=== PATIENT | male | born 1970 | race Caucasian/White ===

== ENCOUNTER → 2017-09-07 | Outpatient (CLI) | payer MEDICARE, BC, MEDICAID ==
[2017-09-07] MEDS: IOHEXOL 300 MG/ML 100ML VIAL. IV (15:38)
[2017-09-07] MEDS: IOHEXOL 240 MG/ML 50ML VIAL. PO (15:45)
== END | disposition home or self-care (01) ==
LOC: CT 13:50
DX: K44.9 Diaphragmatic hernia without obstruction or gangrene (principal); R22.2 Localized swelling, mass and lump, trunk
CPT/HCPCS: 74177; Q9966; Q9967

== ENCOUNTER 2019-12-22 22:22 | Inpatient (IN) | payer MEDICARE ==
[~2019-12-22] VITALS: Ht 175.3 cm; Wt 89.6 kg
[2019-12-22] MEDS ORDERED: CALCIUM GLUCONATE 1,000 MG/10 ML VIAL. ONE (22:26)
[2019-12-22] MEDS ORDERED: SODIUM BICARB ADULT 8.4% 50 MEQ/50 ML DISP.SYRIN. ONE (22:31)
[2019-12-22] MEDS ORDERED: ATROPINE 1 MG/10 ML DISP.SYRINGE. ONE (22:31)
[2019-12-22] MEDS ORDERED: DEXTROSE 50% 25 GM / 50ML DISP.SYRIN. IV ONE ×2 (22:35→23:15)
[2019-12-22 23:01] LABS: ISTAT BE VENOUS -2 mmol/L (0-3); ISTAT HCO3 VEN 24 mmol/L (24-28); ISTAT PCO2 VEN 43 mmHg (41-51); ISTAT PH VEN 7.35 (7.32-7.42); ISTAT PO2 VEN 40 mmHg (20-40); ISTAT SAT O2 VEN 72 %; ISTAT TCO2 VEN 25 mmol/L (21-32)
[2019-12-22 23:04] LABS: BASO % 1 % (0-3); EOS # 0.1 x10^3/uL (0.0-0.7); EOS % 2 % (0-3); HEMATOCRIT 29.4 % (39.0-53.0); HEMOGLOBIN 9.2 g/dL (13.0-17.5); LYMPH # 1.3 x10^3/uL (1.0-4.8); LYMPH % 31 % (24-48); MEAN CORPUSCULAR HEMOGLOBIN 27 pg (25-35); MEAN CORPUSCULAR HGB CONC 31 g/dL (31-37); MEAN CORPUSCULAR VOLUME 87 fL (79-100); MONO # 0.6 x10^3/uL (0.0-1.1); MONO % 15 % (0-9); NEUT # 2.1 x10^3/uL (1.8-7.7); NEUT % 52 % (31-73); PLATELET COUNT 277 x10^3/uL (140-400); RED CELL DISTRIBUTION WIDTH 15.4 % (11.5-14.5); WHITE BLOOD COUNT 4.2 x10^3/uL (4.0-11.0)
[2019-12-22 23:15] LABS: ALBUMIN 1.9 g/dL (3.4-5.0); ALBUMIN/GLOBULIN RATIO 0.5 (1.0-1.7); CALCIUM 8.1 mg/dL (8.5-10.1); CREATININE 8.3 mg/dL (0.7-1.3); GFR 6.9; TOTAL BILIRUBIN 0.3 mg/dL (0.2-1.0); TOTAL PROTEIN 5.4 g/dL (6.4-8.2)
[2019-12-22] MEDS ORDERED: CALCIUM GLUCONATE 1,000 MG/10 ML VIAL. IVP ONE (23:15)
[2019-12-22] MEDS ORDERED: IV NORMAL SALINE 1000ML BAG 1,000 ML IV ONE (23:15)
[2019-12-22] MEDS ORDERED: SODIUM BICARB ADULT 8.4% 50 MEQ/50 ML DISP.SYRIN. IV ONE (23:15)
[2019-12-22] MEDS ORDERED: INSULIN REGULAR 100 UNIT/ML 3ML VIAL. IV ONE (23:15)
[2019-12-23] VITALS (14 sets, daily range): BP systolic 121–151; BP diastolic 74–90
--- NOTE | 2019-12-23 00:14 | PHYS DOC ---
Past Medical History Past Medical History: Other Additional Past Medical Histor: kidney transplant, ascited, esrd Past Surgical History: Cholecystectomy, Other Additional Past Surgical Histo: kidney transplant, peritoneal fistula removed, left chest dialysis cath Smoking Status: Never Smoker Alcohol Use: None General Adult EDM: Chief Complaint: BRADYCARDIA HPI: HPI: The history was obtained from the patient. Patient is a 49-year-old male with PMH ESRD, coronary artery disease who presents with a chief complaint of generalized weakness. Per EMS the patient was bradycardic on arrival with heart rate of approximately 30. 0.5 mg of atropine was administered without success. Patient denies any chest pain or shortness of breath. He states he receives dialysis on Mondays, Wednesdays, and Fridays. He did not receive treatment today because he was not feeling well. 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 He is unsure of the name of the medications he takes but does not think that he takes digoxin or beta-blockers or calcium channel blockers. He denies abdominal pain or vomiting. States he is felt generally ill and weak throughout the day. Denies any syncope. No other complaints. Review of Systems: Review of Systems: Constitutional: Generalized weakness Eyes: Denies change in visual acuity. [] HENT: Denies nasal congestion or sore throat. [] Respiratory: Denies cough or shortness of breath. [] Cardiovascular: Denies chest pain or edema. [] GI: Denies abdominal pain, nausea, vomiting, bloody stools or diarrhea. [] : Denies dysuria. [] Musculoskeletal: Denies back pain or joint pain. [] Integument: Denies rash. [] Neurologic: Denies headache, focal weakness or sensory changes. [] Endocrine: Denies polyuria or polydipsia. [] Lymphatic: Denies swollen glands. [] Psychiatric: Denies depression or anxiety. [] Heart Score: Risk Factors: Risk Factors: DM, Current or recent (<one month) smoker, HTN, HLP, family history of CAD, obesity. Risk Scores: Score 0 - 3: 2.5% MACE over next 6 weeks - Discharge Home Score 4 - 6: 20.3% MACE over next 6 weeks - Admit for Clinical Observation Score 7 - 10: 72.7% MACE over next 6 weeks - Early Invasive Strategies Current Medications: Current Medications Medications (Trade) Dose Ordered Sig/Celia Start Time Stop Time Status Last Admin Dose Admin Atropine Sulfate (ATROPINE 1mg SYRINGE) 1 mg STK-MED ONCE 12/22/19 22:31 12/22/19 22:32 DC Calcium Gluconate (Calcium Gluconate) 3,000 mg 1X ONCE 12/22/19 23:15 12/22/19 23:16 DC 12/22/19 22:30 3,000 MG Dextrose (Dextrose 50%-Water Syringe) 25 gm 1X ONCE 12/22/19 23:15 12/22/19 23:16 DC 12/22/19 22:40 25 GM Insulin Human Regular (HumuLIN R VIAL) 10 unit 1X ONCE 12/22/19 23:15 12/22/19 23:16 DC 12/22/19 22:30 10 UNIT Sodium Bicarbonate (Sodium Bicarb Adult 8.4% Syr) 50 meq 1X ONCE 12/22/19 23:15 12/22/19 23:16 DC 12/22/19 22:36 50 MEQ Sodium Chloride 1,000 ml @ 0 mls/hr 1X ONCE 12/22/19 23:15 12/22/19 23:16 DC 12/22/19 22:38 500 MLS/HR Allergies: Allergies: Allergies Coded Allergies Type Severity Reaction Last Updated Verified metoclopramide Allergy Intermediate Unknown 09/07/17 Yes Physical Exam: PE: Constitutional: Well developed, well nourished, no acute distress, non-toxic appearance. [] HENT: Normocephalic, atraumatic, bilateral external ears normal, oropharynx moist, no oral exudates, nose normal. [] Eyes: PERRLA, EOMI, conjunctiva normal, no discharge. [] Neck: Normal range of motion, no tenderness, supple, no stridor. [] Cardiovascular: Bradycardic. Lungs & Thorax: Bilateral breath sounds clear to auscultation [] Abdomen: Bowel sounds normal, soft, no tenderness, no masses, no pulsatile masses. [] Skin: Warm, dry, no erythema, no rash. [] Back: No tenderness, no CVA tenderness. [] Extremities: Alert with intact cognitive function. No aphasia, dysarthria, or neglect. GCS 15. Pupils 3 mm briskly reactive b/l. No APD present. Cranial nerves 2-12 grossly intact; no facial asymmetry present, tongue midline, shoulder shrugging strength intact. Strength 5/5 and symmetric throughout. Light touch sensation intact throughout. Cerebellar testing appropriate without evidence of dysdiadochokinesia. DTR's 2+ in all 4 extremities. Negative pronator drift bilaterally. Gait deferred Neurologic: Alert and oriented X 3, normal motor function, normal sensory function, no focal deficits noted. [] Psychologic: Affect normal, judgement normal, mood normal. [] Current Patient Data: Labs: Laboratory Tests Test 12/22/19 22:31 12/22/19 22:34 12/22/19 22:57 White Blood Count 4.2 x10^3/uL (4.0-11.0) Red Blood Count 3.40 x10^6/uL (4.30-5.70) L Hemoglobin 9.2 g/dL (13.0-17.5) L Hematocrit 29.4 % (39.0-53.0) L Mean Corpuscular Volume 87 fL (79-100) Mean Corpuscular Hemoglobin 27 pg (25-35) Mean Corpuscular Hemoglobin Concent 31 g/dL (31-37) Red Cell Distribution Width 15.4 % (11.5-14.5) H Platelet Count 277 x10^3/uL (140-400) Neutrophils (%) (Auto) 52 % (31-73) Lymphocytes (%) (Auto) 31 % (24-48) Monocytes (%) (Auto) 15 % (0-9) H Eosinophils (%) (Auto) 2 % (0-3) Basophils (%) (Auto) 1 % (0-3) Neutrophils # (Auto) 2.1 x10^3/uL (1.8-7.7) Lymphocytes # (Auto) 1.3 x10^3/uL (1.0-4.8) Monocytes # (Auto) 0.6 x10^3/uL (0.0-1.1) Eosinophils # (Auto) 0.1 x10^3/uL (0.0-0.7) Basophils # (Auto) 0.0 x10^3/uL (0.0-0.2) Sodium Level 138 mmol/L (136-145) Potassium Level 6.0 mmol/L (3.5-5.1) H Chloride Level 104 mmol/L (98-107) Carbon Dioxide Level 25 mmol/L (21-32) Anion Gap 9 (6-14) Blood Urea Nitrogen 52 mg/dL (8-26) H Creatinine 8.3 mg/dL (0.7-1.3) H Estimated GFR (Cockcroft-Gault) 6.9 BUN/Creatinine Ratio 6 (6-20) Glucose Level 107 mg/dL (70-99) H Lactic Acid Level 1.2 mmol/L (0.4-2.0) Calcium Level 8.1 mg/dL (8.5-10.1) L Total Bilirubin 0.3 mg/dL (0.2-1.0) Aspartate Amino Transferase (AST) 18 U/L (15-37) Alanine Aminotransferase (ALT) 11 U/L (16-63) L Alkaline Phosphatase 137 U/L (46-116) H Total Protein 5.4 g/dL (6.4-8.2) L Albumin 1.9 g/dL (3.4-5.0) L Albumin/Globulin Ratio 0.5 (1.0-1.7) L Glucose (Fingerstick) 103 mg/dL (70-99) H POC Venous pH 7.35 (7.32-7.42) POC Venous pCO2 43 mmHg (41-51) POC Venous pO2 40 mmHg (20-40) Venous Blood HCO3 24 mmol/L (24-28) POC Venous O2 Saturation (Nisreen) 72 % POC FiO2 21.0 Laboratory Tests 12/22/19 22:31 Laboratory Tests 12/22/19 22:31 Vital Signs: Vital Signs Date Time Temp Pulse Resp B/P (MAP) Pulse Ox O2 Delivery O2 Flow Rate FiO2 12/22/19 22:52 74 114/58 (76) 98 Room Air 12/22/19 22:22 98.8 18 98.8 EKG: EKG: [] EKG consistent with bradycardia. No discernible periods noted. Large T waves present. No previous for comparison. Radiology/Procedures: Radiology/Procedures: [] Course & Med Decision Making: Course & Med Decision Making Pertinent Labs and Imaging studies reviewed. (See chart for details) Patient is a 49-year male who presents with a complaint of generalized weakness. Initial vital signs notable for bradycardia of approximately 30. EKG was concerning for hyperkalemia given he has no discernible P waves and does have peaked T waves. 3 g of calcium gluconate was administered immediately. 50 mill equivalents of sodium bicarbonate as well as 50 meq D50 were administered in conjunction with 10 units regular insulin. His heart rate did respond well to this. His current heart rate is now 70 bpm. He showed no signs of current bradycardia. I do feel he will require dialysis given his creatinine is 8.3. I do feel his bradycardia is likely secondary to high potassium. Patient will be hospitalized to the intensive care unit for close heart rate monitoring. Dragon Disclaimer: Dragon Disclaimer: This electronic medical record was generated, in whole or in part, using a voice recognition dictation system. Departure Departure Impression: Primary Impression: Bradycardia Additional Impressions: Hyperkalemia ESRD (end stage renal disease) Disposition: ADMITTED INPATIENT Condition: STABLE Referrals: Michel DAVIDSON MD (PCP) Justicifation of Admission Dx: Justifications for Admission: Justification of Admission Dx: Yes Chronic Renal Failure: Electrolyte Abnormality Comments: bradycardia, hyperkalemia, ESRD WILLARD RUIZ DO Dec 23, 2019 00:14
[2019-12-23] MEDS ORDERED: ATOR80TA72 PO (02:27)
[2019-12-23] MEDS ORDERED: FAMO40TA4 PO (02:27)
[2019-12-23] MEDS ORDERED: TACR1CAP2 PO (02:27)
[2019-12-23] MEDS ORDERED: CALC0.5C8 PO (02:27)
[2019-12-23] MEDS ORDERED: GABA600T7 PO (02:27)
[2019-12-23] MEDS ORDERED: DIPH1TAB5 PO (02:27)
[2019-12-23] MEDS ORDERED: MYCO180T3 PO (02:27)
[2019-12-23] MEDS ORDERED: MAGN64TA6 PO (02:27)
[2019-12-23] MEDS ORDERED: CLOP75TA PO (02:27)
[2019-12-23] MEDS ORDERED: CARV6.253 PO (02:27)
[2019-12-23] MEDS ORDERED: CINA30TA6 PO (02:27)
[2019-12-23] MEDS ORDERED: PANT40TA6 PO (02:27)
--- NOTE | 2019-12-23 02:28 | NUR ---
Patient arrived to ICU room 107 via gurney accompanied by ED RN at 0158. Patient able to move over to ICU bed by himself. Patient attached to ICU monitors. Patient SR on monitor, BP stable, RA, heart murmur heard, patent IVx2 present, A&Ox4, and distended abdomen. Patient states his last date of dialysis was Sunday, but that he is generally very compliant with medications and dialysis so it was out of the ordinary for him to skip his Sunday dialysis. Oriented patient to call light, tv controls, bed controls, ICU routines, activity, and diet. Patient resting at this time, no complaints of pain and VSS. Will continue to monitor.
--- NOTE | 2019-12-23 03:55 | EKG ---
[facility] [address] [place] [address] Test Date: 2019-12-22 Test Time: 22:30:25 Pat Name: CORTES HUYNH Department: Room: Gender: M Vice President Compliance: : 1970 Requested By: WILLARD RUIZ Order Number: [id number] Reading MD: Measurements Intervals [place] Rate: 52 P: [place]: QRS: 23 QRSD: 82 T: 64 QT: 504 QTc: 471 Interpretive Statements IRREGULAR RHYTHM, NO P-WAVE FOUND LOW LIMB LEAD VOLTAGE T ABNORMALITY IN HIGH LATERAL LEADS PROLONGED QT ABNORMAL ECG RI6.02 No previous ECG available for comparison
[2019-12-23] MEDS ORDERED: DIPHENOXYLATE/ATROPINE TABLET. PO PRN (08:45)
[2019-12-23 08:53] LABS: CALCIUM 8.4 mg/dL (8.5-10.1); CREATININE 8.6 mg/dL (0.7-1.3); GFR 6.6; POTASSIUM 5.9 mmol/L (3.5-5.1)
--- NOTE | 2019-12-23 08:55 | PDOC1 ---
History and Physical Date of Admission Date of Admission 09/22/2019 Identification/Chief Complaint Chief Complaint lightheadness Source Source: Chart review, Patient History of Present Illness History of Present Illness Patient is a 49-year-old male with a past medical history of end-stage renal disease and who underwent a kidney transplant seems like it was due to u ncontrolled hypertension he also has a history of coronary artery disease. The patient did not receive his dialysis therapy yesterday as scheduled and he had some complaints of lightheadedness and generalized weakness. EMS was summoned and he was found to have heart rate of 30 requiring atropine administration patient does not recall having changes to his medications on external review of his meds he is on amiodarone which will be placed on hold at the present time. As part of his chronic medications he does have a beta-ricci which is quite low-dose and unlikely to cause a bradycardia of 30. At the time of my evaluation the patient is in no acute distress the patient denies any chest pain no palpitations no shortness of breath no lightheadedness no loss of consciousness no strokelike symptoms were noted. Patient has been admitted at the request of the ER for dialysis and monitoring of his heart rate The patient is hemodynamically stable, all concerns addressed to the best of my abilities Past Medical History Cardiovascular: CAD, CHF Renal/: Chronic renal insuff Past Surgical History Past Surgical History: No pertinent history (Kidney transplant, peritoneal fistula removed, left chest dialysis catheter) Family History Family History: No Significant Social History Smoke: No ALCOHOL: none Drugs: None Current Medications Current Medications Current Medications Medications (Trade) Dose Ordered Sig/Celia Start Time Stop Time Status Last Admin Dose Admin Atropine Sulfate (ATROPINE 1mg SYRINGE) 1 mg STK-MED ONCE 12/22/19 22:31 12/22/19 22:32 DC Calcium Gluconate (Calcium Gluconate) 3,000 mg 1X ONCE 12/22/19 23:15 12/22/19 23:16 DC 12/22/19 22:30 3,000 MG Carvedilol (Coreg) 6.25 mg BID 12/23/19 09:00 UNV Cinacalcet (Sensipar) 30 mg DAILY 12/23/19 09:00 UNV Clopidogrel Bisulfate (Plavix) 75 mg DAILY 12/23/19 09:00 UNV Dextrose (Dextrose 50%-Water Syringe) 25 gm 1X ONCE 12/22/19 23:15 12/22/19 23:16 DC 12/22/19 22:40 25 GM Diphenoxylate HCl/ Atropine (Lomotil) 4 tab QID PRN 12/23/19 08:45 UNV Insulin Human Regular (HumuLIN R VIAL) 10 unit 1X ONCE 12/22/19 23:15 12/22/19 23:16 DC 12/22/19 22:30 10 UNIT Non-Formulary Medication (Atorvastatin Calcium ) 1 tab DAILY 12/23/19 09:00 UNV Non-Formulary Medication (Calcitriol ) 1 cap DAILY 12/23/19 09:00 UNV Non-Formulary Medication (Famotidine ) 1 tab BID 12/23/19 09:00 UNV Non-Formulary Medication (Gabapentin ) 1 tab BID 12/23/19 09:00 UNV Non-Formulary Medication (Magnesium Chloride (Mag64)) 1 tab DAILY 12/23/19 09:00 UNV Pantoprazole Sodium (Protonix) 40 mg DAILY 12/23/19 09:00 UNV Sodium Bicarbonate (Sodium Bicarb Adult 8.4% Syr) 50 meq 1X ONCE 12/22/19 23:15 12/22/19 23:16 DC 12/22/19 22:36 50 MEQ Sodium Chloride 1,000 ml @ 0 mls/hr 1X ONCE 12/22/19 23:15 12/22/19 23:16 DC 12/22/19 22:38 500 MLS/HR Allergies Allergies Allergies Coded Allergies Type Severity Reaction Last Updated Verified metoclopramide Allergy Intermediate Unknown 09/07/17 Yes ROS Review of System CONSTITUTIONAL: No fever or chills EYES: No recent changes SKIN: No rash or itching CARDIOVASCULAR: No chest pain, syncope, palpitations, or edema RESPIRATORY: No SOB or cough GASTROINTESTINAL: No nausea, vomiting or abdominal pain NEUROLOGICAL: No headaches or weakness ENDOCRINE: No cold or heat intolerance GENITOURINARY: No urgency or frequency of urination MUSCULOSKELETAL: No back pain or joint pain LYMPHATICS: No enlarged lymph nodes PSYCHIATRIC: No anxiety or depression Physical Exam Physical Exam GEN.: No apparent distress. Alert and oriented. HEENT: Head is normocephalic, atraumatic NECK: Supple. LUNGS: Clear to auscultation. HEART: RRR, S1, S2 present. Peripheral pulses intact ABDOMEN: Soft, nontender. Positive bowel sounds. EXTREMITIES: Without any cyanosis. NEUROLOGIC: Normal speech, normal tone PSYCHIATRIC: Normal affect, normal mood. SKIN: No ulcerations Vitals Vitals Vital Signs Date Time Temp Pulse Resp B/P (MAP) Pulse Ox O2 Delivery O2 Flow Rate FiO2 12/23/19 08:00 Room Air 12/23/19 08:00 98.4 64 11 140/82 (101) 98 98.4 Labs Labs Laboratory Tests Test 12/22/19 22:31 12/22/19 22:34 12/22/19 22:57 White Blood Count 4.2 x10^3/uL (4.0-11.0) Red Blood Count 3.40 x10^6/uL (4.30-5.70) Hemoglobin 9.2 g/dL (13.0-17.5) Hematocrit 29.4 % (39.0-53.0) Mean Corpuscular Volume 87 fL (79-100) Mean Corpuscular Hemoglobin 27 pg (25-35) Mean Corpuscular Hemoglobin Concent 31 g/dL (31-37) Red Cell Distribution Width 15.4 % (11.5-14.5) Platelet Count 277 x10^3/uL (140-400) Neutrophils (%) (Auto) 52 % (31-73) Lymphocytes (%) (Auto) 31 % (24-48) Monocytes (%) (Auto) 15 % (0-9) Eosinophils (%) (Auto) 2 % (0-3) Basophils (%) (Auto) 1 % (0-3) Neutrophils # (Auto) 2.1 x10^3/uL (1.8-7.7) Lymphocytes # (Auto) 1.3 x10^3/uL (1.0-4.8) Monocytes # (Auto) 0.6 x10^3/uL (0.0-1.1) Eosinophils # (Auto) 0.1 x10^3/uL (0.0-0.7) Basophils # (Auto) 0.0 x10^3/uL (0.0-0.2) Sodium Level 138 mmol/L (136-145) Potassium Level 6.0 mmol/L (3.5-5.1) Chloride Level 104 mmol/L (98-107) Carbon Dioxide Level 25 mmol/L (21-32) Anion Gap 9 (6-14) Blood Urea Nitrogen 52 mg/dL (8-26) Creatinine 8.3 mg/dL (0.7-1.3) Estimated GFR (Cockcroft-Gault) 6.9 BUN/Creatinine Ratio 6 (6-20) Glucose Level 107 mg/dL (70-99) Lactic Acid Level 1.2 mmol/L (0.4-2.0) Calcium Level 8.1 mg/dL (8.5-10.1) Total Bilirubin 0.3 mg/dL (0.2-1.0) Aspartate Amino Transf (AST/SGOT) 18 U/L (15-37) Alanine Aminotransferase (ALT/SGPT) 11 U/L (16-63) Alkaline Phosphatase 137 U/L (46-116) Total Protein 5.4 g/dL (6.4-8.2) Albumin 1.9 g/dL (3.4-5.0) Albumin/Globulin Ratio 0.5 (1.0-1.7) Glucose (Fingerstick) 103 mg/dL (70-99) Bedside Venous pH 7.35 (7.32-7.42) Bedside Venous pCO2 43 mmHg (41-51) Bedside Venous pO2 40 mmHg (20-40) Venous Blood HCO3 24 mmol/L (24-28) POC Venous O2 Saturation (Nisreen) 72 % Bedside FiO2 21.0 Laboratory Tests Test 12/22/19 22:31 12/22/19 22:34 12/22/19 22:57 White Blood Count 4.2 x10^3/uL (4.0-11.0) Red Blood Count 3.40 x10^6/uL (4.30-5.70) Hemoglobin 9.2 g/dL (13.0-17.5) Hematocrit 29.4 % (39.0-53.0) Mean Corpuscular Volume 87 fL (79-100) Mean Corpuscular Hemoglobin 27 pg (25-35) Mean Corpuscular Hemoglobin Concent 31 g/dL (31-37) Red Cell Distribution Width 15.4 % (11.5-14.5) Platelet Count 277 x10^3/uL (140-400) Neutrophils (%) (Auto) 52 % (31-73) Lymphocytes (%) (Auto) 31 % (24-48) Monocytes (%) (Auto) 15 % (0-9) Eosinophils (%) (Auto) 2 % (0-3) Basophils (%) (Auto) 1 % (0-3) Neutrophils # (Auto) 2.1 x10^3/uL (1.8-7.7) Lymphocytes # (Auto) 1.3 x10^3/uL (1.0-4.8) Monocytes # (Auto) 0.6 x10^3/uL (0.0-1.1) Eosinophils # (Auto) 0.1 x10^3/uL (0.0-0.7) Basophils # (Auto) 0.0 x10^3/uL (0.0-0.2) Sodium Level 138 mmol/L (136-145) Potassium Level 6.0 mmol/L (3.5-5.1) Chloride Level 104 mmol/L (98-107) Carbon Dioxide Level 25 mmol/L (21-32) Anion Gap 9 (6-14) Blood Urea Nitrogen 52 mg/dL (8-26) Creatinine 8.3 mg/dL (0.7-1.3) Estimated GFR (Cockcroft-Gault) 6.9 BUN/Creatinine Ratio 6 (6-20) Glucose Level 107 mg/dL (70-99) Lactic Acid Level 1.2 mmol/L (0.4-2.0) Calcium Level 8.1 mg/dL (8.5-10.1) Total Bilirubin 0.3 mg/dL (0.2-1.0) Aspartate Amino Transf (AST/SGOT) 18 U/L (15-37) Alanine Aminotransferase (ALT/SGPT) 11 U/L (16-63) Alkaline Phosphatase 137 U/L (46-116) Total Protein 5.4 g/dL (6.4-8.2) Albumin 1.9 g/dL (3.4-5.0) Albumin/Globulin Ratio 0.5 (1.0-1.7) Glucose (Fingerstick) 103 mg/dL (70-99) Bedside Venous pH 7.35 (7.32-7.42) Bedside Venous pCO2 43 mmHg (41-51) Bedside Venous pO2 40 mmHg (20-40) Venous Blood HCO3 24 mmol/L (24-28) POC Venous O2 Saturation (Nisreen) 72 % Bedside FiO2 21.0 VTE Prophylaxis Ordered VTE Prophylaxis Devices: No VTE Pharmacological Prophylaxi: Yes Assessment/Plan Assessment/Plan Sinus bradycardia most likely secondary to amiodarone End-stage renal disease on hemodialysis with a schedule of Sunday Hyperkalemia secondary to the above with no EKG nor telemetry changes of concern CAD currently asymptomatic Essential hypertension Plan Admit patient to the telemetry floor Resume home medications Hold amiodarone Dialysis as per lactation consultant Further recommendations based on the clinical course DVT prophylaxis with heparin AUDIE BACA MD Dec 23, 2019 08:55
[2019-12-23] MEDS ORDERED: NON FORMULARY ITEM (Famotidine 1 TAB) PO SCH (09:00)
[2019-12-23] MEDS: CLOPIDOGREL BISULFATE 75 MG TABLET PO SCH (09:28)
[2019-12-23] MEDS: CINACALCET HCL 30 MG TABLET PO SCH (09:28)
[2019-12-23] MEDS: CARVEDILOL 6.25 MG TABLET. PO SCH ×2 (09:29→18:32)
[2019-12-23] MEDS: MAGNESIUM CHLORIDE ER 64 MG TABLET.ER PO SCH (09:29)
[2019-12-23] MEDS: PANTOPRAZOLE 40 MG TABLET.DR. PO SCH (09:29)
[2019-12-23] MEDS: GABAPENTIN 300 MG CAPSULE. PO SCH ×2 (09:32→21:08)
[2019-12-23] MEDS: CALCITRIOL 0.25 MCG CAPSULE. PO SCH (10:41)
[2019-12-23] MEDS ORDERED: DIALYSIS PATIENT. MC PRN ×2 (12:30)
[2019-12-23] MEDS ORDERED: ALBUMIN HUMAN 25% 200 ML IV PRN (12:30)
[2019-12-23] MEDS ORDERED: IV NORMAL SALINE 1000ML BAG 1,000 ML IV PRN ×2 (12:30)
[2019-12-23] MEDS ORDERED: TACROLIMUS 1 MG CAPSULE PO SCH (13:00)
[2019-12-23] MEDS: MYCOPHENOLATE ACID 180 MG TABLET.DR. PO SCH ×2 (13:01→21:12)
--- NOTE | 2019-12-23 13:06 | PDOC2 ---
CONSULT Date of Consult Date of Consult DATE: 12/23/19 TIME: 12:53 Reason for Consult Reason for Consult: HIGH K, HX OF RENAL TX AND NOW ESRD Referring Physician Referring Physician: PHUONG Identification/Chief Complaint Chief Complaint WEAKNESS AND LIGHTHEADED Source Source: Chart review, Patient History of Present Illness Reason for Visit: THIS IS A 49 YR OLD WITH A PMH FOR DM. DEVELOPED ESRD AROUND 1999 AND WAS ON HD VIA A LEFT AM AV ACCESS. ABOUT 2002 HE RECEIVED A TRANSPLANT. ABOUT 6 YEARS AGO HIS RENAL TX FAILED AND HE HAD TO RESUME DIALYSIS. HE WAS ON PD UNTIL ABOUT A FEW MONTHS AGO WHEN HE WAS TRANSITIONED TO HD. HIS PANCREAS STILL WORKS AND HE IS THUS STILL ON IMMUNOSUPPRESSIVE MEDICATIONS. ON ADMIT HIS K IS 6.0 AND HE IS BRADYCARDIC WITH HR OF 30 BUT HEMODYNAMICALLY STABLE WITH LOWEST BP OF 91/48. MED LIST INCLUDED A BETABLOCKER AND AMIODARONE. BOTH PLACED ON HOLD AT THIS TIME. HIS ESRD CARE IS DELIVERED BY [facility]. HE HAS OP HD ON MWF AND STATES HE HAS BEEN COMPLIANT BUT DID NOT GO YESTERDAY TO HIS TX DUE TO NOT FEELING WELL. HYPERKALEMIA TX IN THE ER WITH CA, DEXTROSE, INSULIN AND HCO3. Past Medical History Past Medical History HX OF DM, CHRONIC IMMUNOSUPPRESSION. Cardiovascular: CAD, CHF GI: Constipation Renal/: Chronic renal insuff Past Surgical History Past Surgical History KX OF KP TX, LEFT ARM AV ACCESS PLACEMENT, PD CATHETER PLACEMENT AND REMOVAL. RETINAL PHOTOCOAGULATION TX Past Surgical History: No pertinent history (Kidney transplant, left chest dialysis catheter) Family History Family History: No Significant Social History No ALCOHOL: none Drugs: None Current Medications Current Medications Current Medications Calcium Gluconate (Calcium Gluconate) 1,000 mg STK-MED ONCE .ROUTE ; Start 12/22/19 at 22:26; Stop 12/22/19 at 22:27; Status DC Sodium Bicarbonate (Sodium Bicarb Adult 8.4% Syr) 50 meq STK-MED ONCE .ROUTE ; Start 12/22/19 at 22:31; Stop 12/22/19 at 22:32; Status DC Atropine Sulfate (ATROPINE 1mg SYRINGE) 1 mg STK-MED ONCE .ROUTE ; Start 12/22/19 at 22:31; Stop 12/22/19 at 22:32; Status DC Dextrose (Dextrose 50%-Water Syringe) 25 gm STK-MED ONCE IV ; Start 12/22/19 at 22:35; Stop 12/22/19 at 22:35; Status DC Sodium Bicarbonate (Sodium Bicarb Adult 8.4% Syr) 50 meq 1X ONCE IV Last administered on 12/22/19at 22:36; Start 12/22/19 at 23:15; Stop 12/22/19 at 23:16; Status DC Calcium Gluconate (Calcium Gluconate) 3,000 mg 1X ONCE IVP Last administered on 12/22/19at 22:30; Start 12/22/19 at 23:15; Stop 12/22/19 at 23:16; Status DC Insulin Human Regular (HumuLIN R VIAL) 10 unit 1X ONCE IV Last administered on 12/22/19at 22:30; Start 12/22/19 at 23:15; Stop 12/22/19 at 23:16; Status DC Dextrose (Dextrose 50%-Water Syringe) 25 gm 1X ONCE IV Last administered on 12/22/19at 22:40; Start 12/22/19 at 23:15; Stop 12/22/19 at 23:16; Status DC Sodium Chloride 1,000 ml @ 0 mls/hr 1X ONCE IV Last administered on 12/22/19at 22:38; Start 12/22/19 at 23:15; Stop 12/22/19 at 23:16; Status DC Carvedilol (Coreg) 6.25 mg BIDWMEALS PO Last administered on 12/23/19at 09:29; Start 12/23/19 at 10:00 Cinacalcet (Sensipar) 30 mg DAILY PO Last administered on 12/23/19at 09:28; Start 12/23/19 at 10:00 Clopidogrel Bisulfate (Plavix) 75 mg DAILY PO Last administered on 12/23/19at 09:28; Start 12/23/19 at 10:00 Diphenoxylate HCl/ Atropine (Lomotil) 4 tab PRN QID PRN PO DIARRHEA; Start 12/23/19 at 08:45 Pantoprazole Sodium (Protonix) 40 mg DAILYAC PO Last administered on 12/23/19at 09:29; Start 12/23/19 at 10:00 Atorvastatin Calcium (Lipitor) 80 mg QHS PO ; Start 12/23/19 at 21:00 Calcitriol (Rocaltrol) 0.5 mcg DAILY PO Last administered on 12/23/19at 10:41; Start 12/23/19 at 10:00 Non-Formulary Medication (Famotidine ) 1 tab BID PO ; Start 12/23/19 at 09:00; Stop 12/23/19 at 09:25; Status DC Gabapentin (Neurontin) 600 mg BID PO Last administered on 12/23/19at 09:32; Start 12/23/19 at 10:00 Magnesium Chloride (Mag Delay) 64 mg DAILY PO Last administered on 12/23/19at 09:29; Start 12/23/19 at 10:00 Mycophenolate Sodium (Myfortic) 180 mg BID PO ; Start 12/23/19 at 13:00 Tacrolimus (Prograf) 1 mg BID PO ; Start 12/23/19 at 13:00; Stop 12/23/19 at 12:45; Status DC Tacrolimus (Prograf) 1 mg BID PO ; Start 12/23/19 at 21:00 Active Scripts Active Reported Diphenoxylate-Atropine Tablet (Diphenoxylate Hcl/Atropine) 1 Each Tablet 4 Tab PO QID PRN Mycophenolic Acid (Mycophenolate Sodium) 180 Mg Tablet.dr 1 Tab PO BID Atorvastatin Calcium 80 Mg Tablet 1 Tab PO DAILY Clopidogrel (Clopidogrel Bisulfate) 75 Mg Tablet 1 Tab PO DAILY Carvedilol 6.25 Mg Tablet 1 Tab PO BID Pantoprazole Sodium 40 Mg Tablet.dr 1 Tab PO DAILY Tacrolimus 1 Mg Capsule 1 Cap PO BID Calcitriol 0.5 Mcg Capsule 1 Cap PO DAILY Mag64 (Magnesium Chloride) 64 Mg Tablet.er 1 Tab PO DAILY Gabapentin 600 Mg Tablet 1 Tab PO BID Cinacalcet HCl 30 Mg Tablet 1 Tab PO DAILY Famotidine 40 Mg Tablet 1 Tab PO BID Allergies Allergies: Coded Allergies: metoclopramide (Verified Allergy, Intermediate, Unknown, 09/07/17) ROS General: YES: Fatigue, Malaise, Appetite PSYCHOLOGICAL ROS: YES: Anxiety, Depression Eyes: Yes Decreased vision ALLERGY AND IMMUNOLOGY: YES: Seasonal Allergies Cardiovascular: yes Lt Headedness Gastrointestinal: Yes Nausea, Yes Constipation Genitourinary: YES Other (OLIGURIA) Musculoskeletal: Yes Muscular Weakness Neurological: Yes Dizziness, Yes Weakness Skin: Yes Dry Skin Physical Exam Physical Exam LEFT IJ TDC, FAILED LEFT FA AV ACCESS. General: Alert, Oriented X3, Cooperative, No acute distress HEENT: Atraumatic, PERRLA Lungs: Clear to auscultation Heart: Regular rate, Normal S1, Normal S2 Abdomen: Normal bowel sounds, Soft, No tenderness, Other (NT OVER TX SITE) Extremities: No clubbing, No cyanosis, No edema Skin: No breakdown Neuro: Normal speech, Sensation intact, Cranial nerves 3-12 NL Psych/Mental Status: Mental status NL, Mood NL MUSCULOSKELETAL: No joint tenderness, No deformity, No swelling Vitals VITALS Vital Signs Date Time Temp Pulse Resp B/P (MAP) Pulse Ox O2 Delivery O2 Flow Rate FiO2 12/23/19 11:00 97.7 62 15 121/74 (90) 95 Room Air 97.7 Labs Labs Laboratory Tests Test 12/22/19 22:31 12/22/19 22:34 12/22/19 22:57 12/23/19 08:34 White Blood Count 4.2 x10^3/uL (4.0-11.0) Red Blood Count 3.40 x10^6/uL (4.30-5.70) Hemoglobin 9.2 g/dL (13.0-17.5) Hematocrit 29.4 % (39.0-53.0) Mean Corpuscular Volume 87 fL (79-100) Mean Corpuscular Hemoglobin 27 pg (25-35) Mean Corpuscular Hemoglobin Concent 31 g/dL (31-37) Red Cell Distribution Width 15.4 % (11.5-14.5) Platelet Count 277 x10^3/uL (140-400) Neutrophils (%) (Auto) 52 % (31-73) Lymphocytes (%) (Auto) 31 % (24-48) Monocytes (%) (Auto) 15 % (0-9) Eosinophils (%) (Auto) 2 % (0-3) Basophils (%) (Auto) 1 % (0-3) Neutrophils # (Auto) 2.1 x10^3/uL (1.8-7.7) Lymphocytes # (Auto) 1.3 x10^3/uL (1.0-4.8) Monocytes # (Auto) 0.6 x10^3/uL (0.0-1.1) Eosinophils # (Auto) 0.1 x10^3/uL (0.0-0.7) Basophils # (Auto) 0.0 x10^3/uL (0.0-0.2) Sodium Level 138 mmol/L (136-145) 138 mmol/L (136-145) Potassium Level 6.0 mmol/L (3.5-5.1) 5.9 mmol/L (3.5-5.1) Chloride Level 104 mmol/L (98-107) 104 mmol/L (98-107) Carbon Dioxide Level 25 mmol/L (21-32) 24 mmol/L (21-32) Anion Gap 9 (6-14) 10 (6-14) Blood Urea Nitrogen 52 mg/dL (8-26) 59 mg/dL (8-26) Creatinine 8.3 mg/dL (0.7-1.3) 8.6 mg/dL (0.7-1.3) Estimated GFR (Cockcroft-Gault) 6.9 6.6 BUN/Creatinine Ratio 6 (6-20) Glucose Level 107 mg/dL (70-99) 90 mg/dL (70-99) Lactic Acid Level 1.2 mmol/L (0.4-2.0) Calcium Level 8.1 mg/dL (8.5-10.1) 8.4 mg/dL (8.5-10.1) Total Bilirubin 0.3 mg/dL (0.2-1.0) Aspartate Amino Transf (AST/SGOT) 18 U/L (15-37) Alanine Aminotransferase (ALT/SGPT) 11 U/L (16-63) Alkaline Phosphatase 137 U/L (46-116) Total Protein 5.4 g/dL (6.4-8.2) Albumin 1.9 g/dL (3.4-5.0) Albumin/Globulin Ratio 0.5 (1.0-1.7) Glucose (Fingerstick) 103 mg/dL (70-99) Bedside Venous pH 7.35 (7.32-7.42) Bedside Venous pCO2 43 mmHg (41-51) Bedside Venous pO2 40 mmHg (20-40) Venous Blood HCO3 24 mmol/L (24-28) POC Venous O2 Saturation (Nisreen) 72 % Bedside FiO2 21.0 Hepatitis B Surface Antigen Nonreactive (Nonreactive) Laboratory Tests Test 12/22/19 22:31 12/22/19 22:34 12/22/19 22:57 12/23/19 08:34 White Blood Count 4.2 x10^3/uL (4.0-11.0) Red Blood Count 3.40 x10^6/uL (4.30-5.70) Hemoglobin 9.2 g/dL (13.0-17.5) Hematocrit 29.4 % (39.0-53.0) Mean Corpuscular Volume 87 fL (79-100) Mean Corpuscular Hemoglobin 27 pg (25-35) Mean Corpuscular Hemoglobin Concent 31 g/dL (31-37) Red Cell Distribution Width 15.4 % (11.5-14.5) Platelet Count 277 x10^3/uL (140-400) Neutrophils (%) (Auto) 52 % (31-73) Lymphocytes (%) (Auto) 31 % (24-48) Monocytes (%) (Auto) 15 % (0-9) Eosinophils (%) (Auto) 2 % (0-3) Basophils (%) (Auto) 1 % (0-3) Neutrophils # (Auto) 2.1 x10^3/uL (1.8-7.7) Lymphocytes # (Auto) 1.3 x10^3/uL (1.0-4.8) Monocytes # (Auto) 0.6 x10^3/uL (0.0-1.1) Eosinophils # (Auto) 0.1 x10^3/uL (0.0-0.7) Basophils # (Auto) 0.0 x10^3/uL (0.0-0.2) Sodium Level 138 mmol/L (136-145) 138 mmol/L (136-145) Potassium Level 6.0 mmol/L (3.5-5.1) 5.9 mmol/L (3.5-5.1) Chloride Level 104 mmol/L (98-107) 104 mmol/L (98-107) Carbon Dioxide Level 25 mmol/L (21-32) 24 mmol/L (21-32) Anion Gap 9 (6-14) 10 (6-14) Blood Urea Nitrogen 52 mg/dL (8-26) 59 mg/dL (8-26) Creatinine 8.3 mg/dL (0.7-1.3) 8.6 mg/dL (0.7-1.3) Estimated GFR (Cockcroft-Gault) 6.9 6.6 BUN/Creatinine Ratio 6 (6-20) Glucose Level 107 mg/dL (70-99) 90 mg/dL (70-99) Lactic Acid Level 1.2 mmol/L (0.4-2.0) Calcium Level 8.1 mg/dL (8.5-10.1) 8.4 mg/dL (8.5-10.1) Total Bilirubin 0.3 mg/dL (0.2-1.0) Aspartate Amino Transf (AST/SGOT) 18 U/L (15-37) Alanine Aminotransferase (ALT/SGPT) 11 U/L (16-63) Alkaline Phosphatase 137 U/L (46-116) Total Protein 5.4 g/dL (6.4-8.2) Albumin 1.9 g/dL (3.4-5.0) Albumin/Globulin Ratio 0.5 (1.0-1.7) Glucose (Fingerstick) 103 mg/dL (70-99) Bedside Venous pH 7.35 (7.32-7.42) Bedside Venous pCO2 43 mmHg (41-51) Bedside Venous pO2 40 mmHg (20-40) Venous Blood HCO3 24 mmol/L (24-28) POC Venous O2 Saturation (Nisreen) 72 % Bedside FiO2 21.0 Hepatitis B Surface Antigen Nonreactive (Nonreactive) Assessment/Plan Assessment/Plan IMP SEVERE BRADYCARDIA-HR OF 30 HYPERKALEMIA ESRD ANEMIA HX OF KIDNEY PANCREAS TX KIDNEY TX FAILURE CHRONIC IMMUNOSUPPRESSION PLAN HOLD AMIODARONE AND NEG CHRONOTROPES RESUME OTHER HOME MEDS START STEFFANY HD TODAY VIA TDC UF TO DW ENC COMPLIANCE RESUME HIS MMF RESUME PROGRAF WILL NEED AV ACCESS AT SOME POINT WILL FOLLOW PATRICIA VAUGHN MD Dec 23, 2019 13:06
--- NOTE | 2019-12-23 13:23 | NUR ---
Pt requested his family be called and updated on situation. This RN spoke with pt's mother Caprice and updated her on situation as well as visiting hours and room number. Pt is off to dialysis and mother is aware that she is not allowed to visit the dialysis suite. An attempt to call the [facility] but went straight to .
--- NOTE | 2019-12-23 15:10 | NUR ---
SS following for discharge planning. SS reviewed pt chart and discussed with pt RN. Pt is from home and is currently on room air. Pt has outpatient dialysis at [facility], ; fax [phone]. Pt transferred to room 521.
[2019-12-23] MEDS ORDERED: DARBEPOETIN ALFA 60 MCG/0.3 ML DISP.SYRIN. SQ SCH (21:00)
[2019-12-23] MEDS ORDERED: ATORVASTATIN CALCIUM 40 MG TABLET. PO SCH (21:00)
[2019-12-23] MEDS: TACROLIMUS 0.5 MG CAPSULE. PO SCH (21:14)
[2019-12-24 03:00] VITALS: BP 129/73
[2019-12-24 05:52] LABS: BASO % 1 % (0-3); EOS # 0.2 x10^3/uL (0.0-0.7); EOS % 5 % (0-3); HEMATOCRIT 28.7 % (39.0-53.0); HEMOGLOBIN 9.2 g/dL (13.0-17.5); LYMPH # 1.3 x10^3/uL (1.0-4.8); LYMPH % 33 % (24-48); MEAN CORPUSCULAR HEMOGLOBIN 28 pg (25-35); MEAN CORPUSCULAR HGB CONC 32 g/dL (31-37); MEAN CORPUSCULAR VOLUME 86 fL (79-100); MONO # 0.5 x10^3/uL (0.0-1.1); MONO % 14 % (0-9); NEUT # 1.8 x10^3/uL (1.8-7.7); NEUT % 47 % (31-73); PLATELET COUNT 277 x10^3/uL (140-400); RED BLOOD COUNT 3.35 x10^6/uL (4.30-5.70); RED CELL DISTRIBUTION WIDTH 15.2 % (11.5-14.5); WHITE BLOOD COUNT 3.8 x10^3/uL (4.0-11.0)
[2019-12-24 05:59] LABS: CREATININE 7.1 mg/dL (0.7-1.3); GFR 8.2; MAGNESIUM 2.3 mg/dL (1.8-2.4); PHOSPHORUS 4.4 mg/dL (2.6-4.7); POTASSIUM 5.4 mmol/L (3.5-5.1)
[2019-12-24 07:15] VITALS: BP 137/83
[2019-12-24] MEDS: CLOPIDOGREL BISULFATE 75 MG TABLET PO SCH (08:23)
[2019-12-24] MEDS: GABAPENTIN 300 MG CAPSULE. PO SCH (08:23)
[2019-12-24] MEDS: PANTOPRAZOLE 40 MG TABLET.DR. PO SCH (08:23)
[2019-12-24] MEDS: CARVEDILOL 6.25 MG TABLET. PO SCH (08:23)
[2019-12-24] MEDS: CINACALCET HCL 30 MG TABLET PO SCH (08:23)
[2019-12-24] MEDS: TACROLIMUS 0.5 MG CAPSULE. PO SCH (08:24)
[2019-12-24] MEDS: MYCOPHENOLATE ACID 180 MG TABLET.DR. PO SCH (08:24)
--- NOTE | 2019-12-24 10:06 | NUR ---
SW following. Discussed with RN, pt wanting to discharge home today prior to his 1430 outpatient dialysis chair time. RN advised no SW needs, and anticipates discharge home today.
--- NOTE | 2019-12-24 10:47 | DISCH ---
DISCHARGE INSTRUCTIONS Condition on Discharge Condition on Discharge: Stable Activity After Discharge Activity Instructions for Disc: No restrictions Lifting Instructions after Dis: Do not lift >10 pounds Exercise Instruction after Dis: Walk 30 min, 3 x per week Driving Instructions after Dis: Do not drive today Weight Bearing Status after Di: No restrictions Follow-Up Follow up with: Follow-up with humaira pizarro with nephrology regarding your dialysis Follow Up With: Follow-up with your PCP within 1 week of discharge ISIS ELIAS MD Dec 24, 2019 10:47
[2019-12-24 11:15] VITALS: BP 130/75
[2019-12-24] MEDS: CALCITRIOL 0.25 MCG CAPSULE. PO SCH (13:07)
[2019-12-24] MEDS: MAGNESIUM CHLORIDE ER 64 MG TABLET.ER PO SCH (13:07)
--- NOTE | 2019-12-24 13:30 | NUR ---
Discharge Note: Patient was discharged home with self care. Patients IV's were discontinued without any complication per ELIZABETH. Patient was discharged in time for him to go to his dialysis facility. Patient received discharge summary/instructions, follow-ups, and educational material. Patient did not have any further questions or concerns. Patient was taken down to the main entrance via wheelchair with all personal belongings accompanied by ELIZABETH Boyd, where his family member was waiting for him to take him home.
--- NOTE | 2019-12-24 14:40 | PDOC ---
Renal-Progress Notes Subjective Notes Notes FEELING BETTER History of Present Illness Hx of present illness STABLE Vitals Vitals Vital Signs Date Time Temp Pulse Resp B/P (MAP) Pulse Ox O2 Delivery O2 Flow Rate FiO2 12/24/19 11:15 98.5 63 16 130/75 (93) 100 Room Air 98.5 Weight Weight [ ] I.O. Intake and Output Intake and Output 12/24/19 07:00 Intake Total 238 ml Output Total 0 ml Balance 238 ml Intake Oral 238 ml Output Urine Total 0 ml Labs Labs Laboratory Tests Test 12/24/19 05:05 White Blood Count 3.8 x10^3/uL (4.0-11.0) Red Blood Count 3.35 x10^6/uL (4.30-5.70) Hemoglobin 9.2 g/dL (13.0-17.5) Hematocrit 28.7 % (39.0-53.0) Mean Corpuscular Volume 86 fL (79-100) Mean Corpuscular Hemoglobin 28 pg (25-35) Mean Corpuscular Hemoglobin Concent 32 g/dL (31-37) Red Cell Distribution Width 15.2 % (11.5-14.5) Platelet Count 277 x10^3/uL (140-400) Neutrophils (%) (Auto) 47 % (31-73) Lymphocytes (%) (Auto) 33 % (24-48) Monocytes (%) (Auto) 14 % (0-9) Eosinophils (%) (Auto) 5 % (0-3) Basophils (%) (Auto) 1 % (0-3) Neutrophils # (Auto) 1.8 x10^3/uL (1.8-7.7) Lymphocytes # (Auto) 1.3 x10^3/uL (1.0-4.8) Monocytes # (Auto) 0.5 x10^3/uL (0.0-1.1) Eosinophils # (Auto) 0.2 x10^3/uL (0.0-0.7) Basophils # (Auto) 0.0 x10^3/uL (0.0-0.2) Sodium Level 139 mmol/L (136-145) Potassium Level 5.4 mmol/L (3.5-5.1) Chloride Level 102 mmol/L (98-107) Carbon Dioxide Level 27 mmol/L (21-32) Anion Gap 10 (6-14) Blood Urea Nitrogen 43 mg/dL (8-26) Creatinine 7.1 mg/dL (0.7-1.3) Estimated GFR (Cockcroft-Gault) 8.2 Glucose Level 88 mg/dL (70-99) Calcium Level 8.0 mg/dL (8.5-10.1) Phosphorus Level 4.4 mg/dL (2.6-4.7) Magnesium Level 2.3 mg/dL (1.8-2.4) Micro Micro Microbiology 12/22/19 Blood Culture - Preliminary, Resulted NO GROWTH AFTER 1 DAY Review of Systems Constitutional: yes: weakness, alert, oriented Ears/Nose/Throat: Yes: no symptom reported Eyes: Yes: no symptom reported Pulmonary: Yes no symptom reported Cardiovascular: Yes no symptom reported Gastrointestional: Yes: no symptom reported Genitourinary: Yes: no symptom reported Musculoskeletal: Yes: no symptom reported Skin: Yes no symptom reported Psychiatric/Neurological: Yes: no symptom reported Endocrine: Yes: no symptom reported Physical Exam General Appearance: no apparent distress Skin: warm Respiratory: bilateral CTA Heart: S1S2 Abdomen: soft, bowel sounds present Genitourinary: bladder flat Extremities: pulses present Neurology: alert, oriented Assessment Assessment IMP SEVERE BRADYCARDIA-RESOLVED HYPERKALEMIA-MUCH IMPROVED ESRD ANEMIA HX OF KIDNEY PANCREAS TX KIDNEY TX FAILURE CHRONIC IMMUNOSUPPRESSION PLAN ENC COMPLIANCE DID NOT WANT HD HERE TODAY WANT TO D/C AND HAVE HD AT HIS OP UNIT THIS AFTERNOON ENC HIM TO F/U AT HD UNIT D/C PLANS NOTED PATRICIA VAUGHN MD Dec 24, 2019 14:40
--- NOTE | 2019-12-24 15:20 | PDOC3 ---
[facility]-Discharge Summary Date of Admission: Date of Admission: Dec 23, 2019 Date of Discharge: Date of Discharge: Dec 24, 2019 Admission Diagnosis: Admitting Diagnosis: Sinus bradycardia most likely secondary to amiodarone End-stage renal disease on hemodialysis with a schedule of Sunday Hyperkalemia secondary to the above with no EKG nor telemetry changes of concern CAD currently asymptomatic Essential hypertension Discharge Diagnosis: Discharge Diagnosis: Sinus bradycardia most likely secondary to amiodarone End-stage renal disease on hemodialysis with a schedule of Sunday Hyperkalemia secondary to the above with no EKG nor telemetry changes of concern CAD currently asymptomatic Essential hypertension Consults: Consults: Nephrology Hospital Course: Hospital Course: 49-year-old male with a past medical history of end-stage renal disease and who underwent a kidney transplant seems like it was due to uncontrolled hypertension he also has a history of coronary artery disease. The patient did not receive his dialysis therapy yesterday as scheduled and he had some complaints of lightheadedness and generalized weakness. EMS was summoned and he was found to have heart rate of 30 requiring atropine administration patient does not recall having changes to his medications on external review of his meds he is on amiodarone which will be placed on hold at the present time. As part of his chronic medications he does have a beta-ricci which is quite low-dose and unlikely to cause a bradycardia of 30. At the time of my evaluation the patient is in no acute distress the patient denies any chest pain no palpitations no shortness of breath no lightheadedness no loss of consciousness no strokelike symptoms were noted. Patient has been admitted at the request of the ER for dialysis and monitoring of his heart rate Patient was admitted for further care and telemetry monitoring. Patient also received 1 session of hemodialysis and had improvement of his symptoms. Patient was seen by nephrology and recommend for him to continue with his hemodialysis. Patient does have close follow-up with [facility] nephrology. He is currently receiving hemodialysis through a left permacath. He will also be evaluated for possible aVF. Patient was instructed to hold off from amiodarone at this time until seen by his lockstitch topstitcher. The rest of the hospital course was uneventful. Disposition: Disposition/Orders: D/C to Home Activity: Activity: Resume previous activity Diet: Diet: Renal Medications: Home Meds Reported Medications Diphenoxylate Hcl/Atropine (DIPHENOXYLATE-ATROPINE TABLET) 1 Each Tablet, 4 TAB PO QID PRN for DIARRHEA 12/23/19 Mycophenolate Sodium (MYCOPHENOLIC ACID) 180 Mg Tablet.dr, 1 TAB PO BID for antirejection 12/23/19 Atorvastatin Calcium (Atorvastatin Calcium) 80 Mg Tablet, 1 TAB PO DAILY for cholesterol 12/23/19 Clopidogrel Bisulfate (CLOPIDOGREL) 75 Mg Tablet, 1 TAB PO DAILY for stents 12/23/19 Carvedilol (Carvedilol) 6.25 Mg Tablet, 1 TAB PO BID for BP 12/23/19 Pantoprazole Sodium (Pantoprazole Sodium) 40 Mg Tablet.dr, 1 TAB PO DAILY for gerd 12/23/19 Tacrolimus (TACROLIMUS) 1 Mg Capsule, 1 CAP PO BID for antirejection 12/23/19 Calcitriol (CALCITRIOL) 0.5 Mcg Capsule, 1 CAP PO DAILY for kidney failure 12/23/19 Magnesium Chloride (MAG64) 64 Mg Tablet.er, 1 TAB PO DAILY for supplement 12/23/19 Gabapentin (GABAPENTIN) 600 Mg Tablet, 1 TAB PO BID for neuropathy 12/23/19 Cinacalcet HCl (Cinacalcet HCl) 30 Mg Tablet, 1 TAB PO DAILY for dialysis 12/23/19 Famotidine (FAMOTIDINE) 40 Mg Tablet, 1 TAB PO BID for gerd 12/23/19 Scheduled Atorvastatin Calcium (Atorvastatin Calcium), 1 TAB PO DAILY, (Reported) Calcitriol (Calcitriol), 1 CAP PO DAILY, (Reported) Carvedilol (Carvedilol), 1 TAB PO BID, (Reported) Cinacalcet HCl (Cinacalcet HCl), 1 TAB PO DAILY, (Reported) Clopidogrel Bisulfate (Clopidogrel), 1 TAB PO DAILY, (Reported) Famotidine (Famotidine), 1 TAB PO BID, (Reported) Gabapentin (Gabapentin), 1 TAB PO BID, (Reported) Magnesium Chloride (Mag64), 1 TAB PO DAILY, (Reported) Mycophenolate Sodium (Mycophenolic Acid), 1 TAB PO BID, (Reported) Pantoprazole Sodium (Pantoprazole Sodium), 1 TAB PO DAILY, (Reported) Tacrolimus (Tacrolimus), 1 CAP PO BID, (Reported) Scheduled PRN Diphenoxylate Hcl/Atropine (Diphenoxylate-Atropine Tablet), 4 TAB PO QID PRN for DIARRHEA, (Reported) Total Time: Total Time: Total time spent was 25 minutes in preparing scripts, discharge planning with SWI and RN and preparing this discharge summary Justicifation of Admission Dx: Justifications for Admission: Justification of Admission Dx: Yes Chronic Renal Failure: Electrolyte Abnormality ISIS ELIAS MD Dec 24, 2019 15:20
== END 2019-12-24 13:30 | disposition home or self-care (01) | DRG 308 ==
LOC: ER 22:22 → 1 WEST ICU 12-23 00:10 → 5 NORTH 12-23 14:45
PROVIDERS: ADMIT Internal Medicine; ATTEND Internal Medicine
PROC: 5A1D70Z Performance of Urinary Filtration, Intermittent, Less than 6 Hours Per Day (ICD-10-PCS; principal; 2019-12-23)
DX: R00.1 Bradycardia, unspecified (principal); N18.6 End stage renal disease; I13.2 Hypertensive heart and chronic kidney disease with heart failure and with stage 5 chronic kidney disease, or end stage renal disease; Z94.0 Kidney transplant status; E87.5 Hyperkalemia; I25.10 Atherosclerotic heart disease of native coronary artery without angina pectoris; I50.9 Heart failure, unspecified; E11.22 Type 2 diabetes mellitus with diabetic chronic kidney disease; D89.9 Disorder involving the immune mechanism, unspecified; D64.9 Anemia, unspecified; T46.2X5A Adverse effect of other antidysrhythmic drugs, initial encounter; Y92.89 Other specified places as the place of occurrence of the external cause; Z99.2 Dependence on renal dialysis; Z88.8 Allergy status to other drugs, medicaments and biological substances
CPT/HCPCS: 36415; 80048; 80053; 82803; 82962; 83605; 83735; 84100; 85025; 86317; 87040; 87340; 93005; 96361; 96374; 96375; 99285; J0610; J0882; J1815; J3490; J7030; J7507; G0378